=== PATIENT | male | born 1975 | race Caucasian/White ===

== ENCOUNTER 2016-11-07 09:21 | Emergency (ER) | payer OTHER ==
[2016-11-07] MEDS ORDERED: BRETHINE SUB-Q ONE (10:07)
--- NOTE | 2016-11-07 10:10 | Emergency Department Report ---
Entered by NELLIE COOK, acting as scribe for KEVAN MAI PA. Chief Complaint: Urogenital-Male Stated Complaint: TESTICLE PAIN Time Seen by Provider: 11/07/16 09:52 - HPI History of Present Illness: Patient presents to the ED c/o penile pain and priapism episode that began yesterday at 10:00. He reports he had a priapism episode on 10/20/2016 and was prescribed Zoloft and Trazodone. He states his current priapism episode began after he took the prescribed medications, which he notes has lasted longer than 10 hours. - ROS Review of Systems: All system are negative unless stated in HPI above. - Exam Vital Signs: Vital Signs 11/07/16 09:43 Temperature 98.6 F Pulse Rate 66 Respiratory 14 Rate Blood Pressure 139/102 O2 Sat by Pulse 99 Oximetry Physical Exam: General: well nourished, well deverloped, nontoxic in appearance, in no acute distress Abdomen: soft, nontender in all quadrants Male Urogenital: Penis erectile. Positive priapism. No rash. No lesions. MSE screening note: Focused history and physical exam performed. Due to findings the following was ordered: ED Medical Decision Making - Medical Decision Making Medical decision making: Patient seen by provider in triage area. Appropriate protocol activated and patient to main ED to be seen by provider ED Disposition for MSE Condition: Stable This documentation as recorded by the scribe,NELLIE COOK,accurately reflects the service I personally performed and the decisions made by me,KEVAN MAI PA.
[2016-11-07] MEDS ORDERED: NORCO 5/325 PO ONE ×2 (10:15→11:26)
--- NOTE | 2016-11-07 10:22 | Emergency Department Report ---
ED Male HPI - General Chief complaint: Urogenital-Male Stated complaint: TESTICLE PAIN Time Seen by Provider: 11/07/16 09:58 Source: patient Mode of arrival: Ambulatory Limitations: No Limitations - History of Present Illness Initial comments: 41-year-old male presents to the emergency department complaining of penile pain and prolonged erection. Patient states that he took a dose of trazodone 2 nights ago. He reports the current episode began yesterday morning at approximately 10 AM. He states this has happened to him one time previously after he was started on Zoloft and trazodone at [facility]. He was seen at that facility at that time and the Zoloft was stopped. He states that he had blood drained from his penis at the time. Patient denies abdominal pain or difficulty urinating. There are no other complaints. -: Sudden, days(s) (1) Location: penis Radiation: none Severity: moderate Quality: aching Consistency: constant Improves with: none Worsens with: none new medication denies other symptoms - Related Data Home Medications Medication Instructions Recorded Confirmed Last Taken Sertraline [Zoloft] 50 mg PO QDAY PRN 11/07/16 11/07/16 Unknown Previous Rx's Medication Instructions Recorded Last Taken Type HYDROcodone/APAP 5-325 [[place] 1 each PO Q6HR PRN #20 tablet 11/07/16 Unknown Rx 5/325] Allergies Allergy/AdvReac Type Severity Reaction Status Date / Time No Known Allergies Allergy Unverified 11/07/16 09:40 ED Review of Systems ROS: Stated complaint: TESTICLE PAIN Other details as noted in HPI Comment: All other systems reviewed and negative Genitourinary: as per HPI (penile pain) ED Past Medical Hx - Past Medical History Previous Medical History?: Yes Hx Psychiatric Treatment: Yes (Sleep disorder) Additional medical history: priaprism - Surgical History Past Surgical History?: No - Family History Family history: no significant - Social History Smoking Status: Former Smoker Substance Use Type: Alcohol, Marijuana, Prescribed - Medications Home Medications: Home Medications Medication Instructions Recorded Confirmed Last Taken Type HYDROcodone/APAP 5-325 [[place] 1 each PO Q6HR PRN #20 tablet 11/07/16 Unknown Rx 5/325] Sertraline [Zoloft] 50 mg PO QDAY PRN 11/07/16 11/07/16 Unknown History ED Physical Exam - General Limitations: No Limitations General appearance: alert, in no apparent distress - Head Head exam: Present: atraumatic, normocephalic - Eye Eye exam: Present: normal appearance, PERRL, EOMI - ENT ENT exam: Present: normal exam, normal orophraynx, mucous membranes moist - Neck Neck exam: Present: normal inspection, full ROM. Absent: tenderness - Respiratory Respiratory exam: Present: normal lung sounds bilaterally. Absent: respiratory distress - Cardiovascular Cardiovascular Exam: Present: regular rate, normal rhythm, normal heart sounds - GI/Abdominal GI/Abdominal exam: Present: soft, normal bowel sounds. Absent: distended, tenderness - exam: Present: other (penile erection noted. Penile beverage inspection machine tender to palpation. No lesions noted.). Absent: testicular tenderness, urethral discharge, scrotal swelling - Extremities Exam Extremities exam: Present: normal inspection, full ROM. Absent: tenderness - Back Exam Back exam: Present: normal inspection, full ROM. Absent: tenderness - Neurological Exam Neurological exam: Present: alert, oriented X3. Absent: motor sensory deficit - Skin Skin exam: Present: warm, dry, intact ED Course Vital Signs 11/07/16 11/07/16 11/07/16 09:43 10:21 11:21 Temperature 98.6 F Pulse Rate 66 Respiratory 14 14 14 Rate Blood Pressure 139/102 O2 Sat by Pulse 99 Oximetry 11/07/16 11:39 Temperature Pulse Rate Respiratory 14 Rate Blood Pressure O2 Sat by Pulse Oximetry - Reevaluation(s) Reevaluation #1: 11/07/16 11:05 Patient has received 2 subcutaneous doses of terbutaline without resolution. Proceeding with penile block and aspiration. - Penile Procedure Consent Obtained: verbal consent Time Out Performed: Yes Indication: priapism management Procedural Sedation: No Local Anesthesia Used: Penile Nerve Block Amount of Anesthesia Used (mls): 4 Priapism Management: aspiration (20 ml dark blood) Complications: none Patient Tolerated Procedure: well Additional Comments: After aspiration of blood from the right corpus cavernosum, detemuscence achieved. ED Medical Decision Making - Lab Data Result diagrams: 11/07/16 10:00 11/07/16 10:00 - Differential Diagnosis medication induced priaprism Critical care attestation.: If time is entered above; I have spent that time in minutes in the direct care of this critically ill patient, excluding procedure time. ED Disposition Clinical Impression: Priapism, drug-induced Disposition: DISCHARGED TO HOME OR SELFCARE Is pt being admited?: No Condition: Stable Instructions: Priapism (ED) Additional Instructions: Stop taking your trazodone. If symptoms worsen, or if new symptoms develop, return to the emergency department. Prescriptions: HYDROcodone/APAP 5-325 [[place] 5/325] 1 each PO Q6HR PRN #20 tablet PRN Reason: Pain Referrals: PRIMARY CARE, [Primary Care Provider] - 3-5 Days Time of Disposition: 12:26
[2016-11-07 10:31] LABS: Anion Gap 16 mmol/L; BUN/Creatinine Ratio 11.66; Blood Urea Nitrogen 14 mg/dL (9-20); Carbon Dioxide 25 mmol/L (22-30); Chloride 104.6 mmol/L (98-107); Glucose 103 mg/dL (75-100); Potassium 4.1 mmol/L (3.6-5.0); Sodium 141 mmol/L (137-145)
[2016-11-07 10:37] LABS: Basophils % (Auto) 0.7 % (0.0-1.8); Eosinophils % (Auto) 1.7 % (0.0-4.3); Hemoglobin 12.6 gm/dl (11.8-15.2); Mean Corpuscular HGB Conc 31 % (32-34); Mean Corpuscular Volume 82 fl (84-94); Platelet Count 273 K/mm3 (140-440); Red Blood Count 4.91 M/mm3 (3.65-5.03); Red Cell Distribution Width 15.2 % (13.2-15.2); White Blood Count 10.4 K/mm3 (4.5-11.0)
[2016-11-07 10:39] LABS: Mean Corpuscular Hemoglobin 26 pg (28-32)
[2016-11-07] MEDS ORDERED: NACL 0.9% 500 ML IR ONE (10:54)
[2016-11-07] MEDS ORDERED: NACL 0.9% IR ONE (10:56)
[2016-11-07] MEDS ORDERED: XYLOCAINE 1% 20 mL INFILTRATI ONE (10:56)
[2016-11-07 12:58] VITALS: BP 136/78
== END 2016-11-07 12:57 | disposition home or self-care (01) ==
LOC: ED 09:21
DX: N48.33 Priapism, drug-induced (principal); G47.9 Sleep disorder, unspecified; F12.10 Cannabis abuse, uncomplicated; Z87.891 Personal history of nicotine dependence
CPT/HCPCS: 36415; 54220; 80048; 85025; 96372; 99283; J3105